=== PATIENT | male | born 1950 | race Caucasian/White ===

== ENCOUNTER 2017-03-11 10:08 | Emergency (ER) | payer OTHER, MEDICARE ==
[~2017-03-11 10:08] MED LIST: ADULT TUSS100 MG/51 PO; AMLODIPINE BESY10 M1 PO; ARTIFICIAL TEAR15 M8 OP; BENADRYL25 M3 PO; DIALYSIS; EYLEA2 MG/0.01 IO; FOLIC ACID1 M1 PO; FUROSEMIDE20 M1 PO; GLIPIZIDE10 M2 PO; GLUCAGON EMERGEN1 MG IM; GUAIFENESIN400 M1 PO; HUMALOG KW200 UNIT/1 SC; HYDRALAZINE HC100 M1 PO; IPRAT-ALBUT 0.5-3 ML INH; LANTUS SOL100 UNIT/1 SC; LEVAQUIN500 M1 PO; LEVOFLOXACIN500 M1 PO; LOPERAMIDE2 M2 PO; LOPRESSOR100 M1 PO; LUCENTIS0.3 MG/0.1 IO; MUCUS RELIEF400 M1 PO; NICORETTE BC; NICOTINE PATCH1 EAC1 TD; NORCO 5-325 TA1 EACH PO; NORVASC10 M2 PO; PLAVIX75 M1 PO; PRAVACHOL20 M1 PO; PREDNISONE10 M1; PREDNISONE10 M1 PO; PROVENTIL HFA6.7 G1 PO; RENVELA800 M1 PO; RIBAVIRIN200 M1 PO; SODIUM BICARBO650 M1 PO; SODIUM POL15 GM/601 PO; SYMBICORT 80-41 PUFF INH; TYLENOL325 M2 PO; VIEKIRA PAK1 EACH PO; VITAMIN B-12100 MC1 PO; VITAMIN B-625 M1 PO; XANAX0.25 M1 PO; XANAX0.5 M1 PO; ZESTRIL40 M2 PO; ZOLPIDEM TARTRAT5 M2 PO
[2017-03-11] MEDS ORDERED: MUPIROCIN22 G2 TP (10:47)
[2017-03-11] MEDS ORDERED: OXYCODONE HCL5 M1 PO (10:47)
[2017-03-11] MEDS ORDERED: RENVELA800 M1 PO (10:48)
[2017-03-11] MEDS ORDERED: EPOGEN2000 UNIT/ IV (11:18)
[2017-03-11] MEDS ORDERED: HECTOROL IV (11:18)
[2017-03-11] MEDS ORDERED: VENOFER100 MG/52 IV (11:19)
[2017-03-11 11:26] LABS: ABG CO2 ARTERIAL 24 mmol/L (21-27); ARTERIAL BLD GAS O2 SATURATION 94 % (95-98); ARTERIAL BLOOD GAS PCO2 42 mmHg (32-45); ARTERIAL PO2 73 mmHg (70-100); BICARBONATE 23 mmol/L (21-28); BLOOD GAS BASE EXCESS -2 mM/L (-/+3); PH 7.36 Units (7.35-7.45)
[2017-03-11 12:11] LABS: BASO % 0.5 % (0-2); EOS % 2.9 % (0-7); EOSINOPHIL ABSOLUTE COUNT 0.3 tho/cmm (0.0-0.7); HCT-HEMATOCRIT 30.8 % (36.0-53.5); HGB-HEMOGLOBIN 9.7 gm/dl (13.5-17.0); IMMATURE GRANULOCYTES ABSOLUTE 0.02 tho/cmm (0-0.03); IMMATURE GRANULOCYTES PERCENT 0.2 % (0-0.3); LYMPH % 17.4 % (20-45); LYMPH ABSOLUTE COUNT 1.5 tho/cmm (0.8-4.5); MCH (MEAN CORPUSCULAR HGB) 28.7 pg (28.0-32.0); MCHC MEAN CORPUSCULAR HGB CONC 31.5 % (32.0-36.0); MCV (MEAN CELL VOLUME) 91.1 fl (82.0-96.0); MEAN PLATELET VOLUME 9.1 cmc (9.4-12.4); MONOCYTE ABSOLUTE COUNT 0.8 tho/cmm (0.0-1.2); PLATELET COUNT 228 tho/cmm (150-450); RED BLOOD COUNT 3.38 mil/cmm (4.40-5.70); RED CELL DISTRIBUTION WIDTH 13.9 % (12.4-16.4); WHITE BLOOD COUNT 8.5 tho/cmm (4.0-10.0)
[2017-03-11 12:25] LABS: ANION GAP 16 mmol/L (0-20); BLOOD UREA NITROGEN 48 mg/dl (6-24); CALCIUM 9.2 mg/dl (8.5-10.5); CARBON DIOXIDE-VENOUS 26 mmol/L (22-32); CHLORIDE 105 mmol/l (96-110); CREATININE 7.18 mg/dl (0.60-1.30); GLUCOSE 109 mg/dL (70-110); POTASSIUM 5.3 mmol/L (3.7-5.1); SODIUM 142 mmol/L (135-145); eGFR VALUE FOR BLACK 8 mL/Min
[2017-03-11] MEDS ORDERED: PREDNISONE50 M1 PO (13:30)
[2017-04-29] MEDS ORDERED: VENOFER50 MG/2.5 IV (10:18)
[2017-05-02] MEDS ORDERED: LEVAQUIN500 M1 PO (09:48)
[2017-06-10] MEDS ORDERED: DELTASONE20 MG PO (09:22)
[2017-06-10] MEDS ORDERED: LEVAQUIN500 M1 PO (09:22)
[2017-06-13] MEDS ORDERED: PREDNISONE10 M1 PO (14:35)
[2017-06-13] MEDS ORDERED: LEVAQUIN500 M1 PO (14:38)
== END 2017-03-11 13:40 ==
LOC: EDMED 10:08
PROVIDERS: Emergency Medicine
DX: J44.9 Chronic obstructive pulmonary disease, unspecified (principal); E11.22 Type 2 diabetes mellitus with diabetic chronic kidney disease; I12.0 Hypertensive chronic kidney disease with stage 5 chronic kidney disease or end stage renal disease; N18.6 End stage renal disease; F17.200 Nicotine dependence, unspecified, uncomplicated; Z79.51 Long term (current) use of inhaled steroids; Z79.899 Other long term (current) drug therapy
CPT/HCPCS: J2930

== ENCOUNTER 2017-03-12 21:07 | Inpatient (IN) | payer OTHER, MEDICARE ==
[~2017-03-12 21:07] MED LIST changes: +EPOGEN2000 UNIT/ IV; +HECTOROL IV; +MUPIROCIN22 G2 TP; +OXYCODONE HCL5 M1 PO; +PREDNISONE50 M1 PO; +VENOFER100 MG/52 IV
[2017-03-12 21:44] LABS: BASO % 0.1 % (0-2); HCT-HEMATOCRIT 31.7 % (36.0-53.5); HGB-HEMOGLOBIN 10.3 gm/dl (13.5-17.0); IMMATURE GRANULOCYTES ABSOLUTE 0.09 tho/cmm (0-0.03); IMMATURE GRANULOCYTES PERCENT 0.7 % (0-0.3); LYMPH % 15.6 % (20-45); LYMPH ABSOLUTE COUNT 2.2 tho/cmm (0.8-4.5); MCH (MEAN CORPUSCULAR HGB) 29.3 pg (28.0-32.0); MCHC MEAN CORPUSCULAR HGB CONC 32.5 % (32.0-36.0); MCV (MEAN CELL VOLUME) 90.3 fl (82.0-96.0); MEAN PLATELET VOLUME 9.7 cmc (9.4-12.4); MONO % 5.4 % (0-12); MONOCYTE ABSOLUTE COUNT 0.7 tho/cmm (0.0-1.2); NEUTROPHIL ABSOLUTE COUNT 10.8 tho/cmm (1.6-8.0); NEUTROPHIL-AUTOMATED 10.8 tho/cmm (1.6-8.0); NEUTROPHILS % 78.2 % (40-80); RED BLOOD COUNT 3.51 mil/cmm (4.40-5.70); RED CELL DISTRIBUTION WIDTH 14.2 % (12.4-16.4)
[2017-03-12 21:46] LABS: ABG CO2 ARTERIAL 22 mmol/L (21-27); ARTERIAL BLD GAS O2 SATURATION 100 % (95-98); ARTERIAL BLOOD GAS PCO2 43 mmHg (32-45); ARTERIAL PO2 429 mmHg (70-100); BICARBONATE 20 mmol/L (21-28); BLOOD GAS BASE EXCESS -5 mM/L (-/+3)
[2017-03-12 22:00] LABS: ANION GAP 22 mmol/L (0-20); CALCIUM 8.9 mg/dl (8.5-10.5); CARBON DIOXIDE-VENOUS 21 mmol/L (22-32); CHLORIDE 101 mmol/l (96-110); CREATININE 8.01 mg/dl (0.60-1.30); MAGNESIUM 2.2 mg/dl (1.8-2.6); PHOSPHOROUS 6.8 mg/dl (2.5-4.9); POTASSIUM 5.8 mmol/L (3.7-5.1); SODIUM 138 mmol/L (135-145); eGFR VALUE FOR BLACK 7 mL/Min
[2017-03-12 22:02] LABS: PLATELET COUNT 368 tho/cmm (150-450); WHITE BLOOD COUNT 13.8 tho/cmm (4.0-10.0)
[2017-03-12 22:03] LABS: BLOOD UREA NITROGEN 73 mg/dl (6-24); GLUCOSE 441 mg/dL (70-110)
[2017-03-13 03:54] LABS: BASO % 0.1 % (0-2); EOS % 0.1 % (0-7); HCT-HEMATOCRIT 29.2 % (36.0-53.5); HGB-HEMOGLOBIN 9.6 gm/dl (13.5-17.0); IMMATURE GRANULOCYTES ABSOLUTE 0.14 tho/cmm (0-0.03); IMMATURE GRANULOCYTES PERCENT 1.2 % (0-0.3); LYMPH % 9.2 % (20-45); LYMPH ABSOLUTE COUNT 1.1 tho/cmm (0.8-4.5); MCH (MEAN CORPUSCULAR HGB) 29.3 pg (28.0-32.0); MCHC MEAN CORPUSCULAR HGB CONC 32.9 % (32.0-36.0); MEAN PLATELET VOLUME 9.2 cmc (9.4-12.4); MONO % 9.8 % (0-12); MONOCYTE ABSOLUTE COUNT 1.1 tho/cmm (0.0-1.2); NEUTROPHIL ABSOLUTE COUNT 9.3 tho/cmm (1.6-8.0); NEUTROPHIL-AUTOMATED 9.3 tho/cmm (1.6-8.0); NEUTROPHILS % 79.6 % (40-80); PLATELET COUNT 263 tho/cmm (150-450); RED BLOOD COUNT 3.28 mil/cmm (4.40-5.70); RED CELL DISTRIBUTION WIDTH 13.9 % (12.4-16.4); WHITE BLOOD COUNT 11.7 tho/cmm (4.0-10.0)
[2017-03-13 04:02] LABS: CALCIUM 8.4 mg/dl (8.5-10.5); CARBON DIOXIDE-VENOUS 27 mmol/L (22-32); CHLORIDE 100 mmol/l (96-110); SODIUM 136 mmol/L (135-145); eGFR VALUE FOR BLACK 17 mL/Min
[2017-03-13 04:11] LABS: ANION GAP 13 mmol/L (0-20); BLOOD UREA NITROGEN 30 mg/dl (6-24); CREATININE 4.01 mg/dl (0.60-1.30); GLUCOSE 175 mg/dL (70-110); POTASSIUM 3.7 mmol/L (3.7-5.1)
[2017-03-13] MEDS ORDERED: PREDNISONE50 M1 PO (11:29)
[2017-03-14 06:06] LABS: ANION GAP 13 mmol/L (0-20); BLOOD UREA NITROGEN 37 mg/dl (6-24); CALCIUM 8.3 mg/dl (8.5-10.5); CARBON DIOXIDE-VENOUS 27 mmol/L (22-32); CHLORIDE 98 mmol/l (96-110); CREATININE 3.62 mg/dl (0.60-1.30); GLUCOSE 245 mg/dL (70-110); LIPASE 458 U/L (73-393); POTASSIUM 4.4 mmol/L (3.7-5.1); SODIUM 134 mmol/L (135-145); eGFR VALUE FOR BLACK 19 mL/Min
[2017-03-14 06:07] LABS: CREATINE PHOSPHOKINASE (CPK) 61 U/L (35-232)
[2017-03-14 06:21] LABS: CKMB 1.5 ng/ml (<3.6)
[2017-03-15 03:34] LABS: BASO % 0.1 % (0-2); EOS % 0.1 % (0-7); HCT-HEMATOCRIT 26.4 % (36.0-53.5); HGB-HEMOGLOBIN 8.6 gm/dl (13.5-17.0); IMMATURE GRANULOCYTES ABSOLUTE 0.12 tho/cmm (0-0.03); IMMATURE GRANULOCYTES PERCENT 1.4 % (0-0.3); LYMPH % 18.9 % (20-45); LYMPH ABSOLUTE COUNT 1.7 tho/cmm (0.8-4.5); MCH (MEAN CORPUSCULAR HGB) 29.2 pg (28.0-32.0); MCHC MEAN CORPUSCULAR HGB CONC 32.6 % (32.0-36.0); MCV (MEAN CELL VOLUME) 89.5 fl (82.0-96.0); MEAN PLATELET VOLUME 9.3 cmc (9.4-12.4); MONO % 11.4 % (0-12); NEUTROPHILS % 68.1 % (40-80); PLATELET COUNT 217 tho/cmm (150-450); RED BLOOD COUNT 2.95 mil/cmm (4.40-5.70); RED CELL DISTRIBUTION WIDTH 13.9 % (12.4-16.4); WHITE BLOOD COUNT 8.8 tho/cmm (4.0-10.0)
[2017-03-15 04:05] LABS: ALBUMIN 3.1 g/dl (3.5-5.0); ANION GAP 16 mmol/L (0-20); BLOOD UREA NITROGEN 75 mg/dl (6-24); CALCIUM 7.7 mg/dl (8.5-10.5); CARBON DIOXIDE-VENOUS 23 mmol/L (22-32); CHLORIDE 99 mmol/l (96-110); CREATININE 5.46 mg/dl (0.60-1.30); GLUCOSE 218 mg/dL (70-110); MAGNESIUM 1.7 mg/dl (1.8-2.6); PHOSPHOROUS 3.6 mg/dl (2.5-4.9); POTASSIUM 4.1 mmol/L (3.7-5.1); SODIUM 134 mmol/L (135-145); eGFR VALUE FOR BLACK 12 mL/Min
[2017-03-16 05:51] LABS: ANION GAP 14 mmol/L (0-20); BLOOD UREA NITROGEN 43 mg/dl (6-24); CALCIUM 7.5 mg/dl (8.5-10.5); CARBON DIOXIDE-VENOUS 26 mmol/L (22-32); CHLORIDE 101 mmol/l (96-110); MAGNESIUM 1.5 mg/dl (1.8-2.6); PHOSPHOROUS 3.3 mg/dl (2.5-4.9); SODIUM 137 mmol/L (135-145); eGFR VALUE FOR BLACK 19 mL/Min
[2017-03-16 05:52] LABS: CREATININE 3.63 mg/dl (0.60-1.30); GLUCOSE 106 mg/dL (70-110)
[2017-03-16] MEDS ORDERED: ISOSORBIDE MONO30 M4 PO (12:40)
[2017-03-16] MEDS ORDERED: ASPIRIN EC81 MG PO (12:42)
[2017-04-29] MEDS ORDERED: VENOFER50 MG/2.5 IV (10:18)
[2017-05-02] MEDS ORDERED: LEVAQUIN500 M1 PO (09:48)
[2017-06-10] MEDS ORDERED: LEVAQUIN500 M1 PO (09:22)
[2017-06-10] MEDS ORDERED: DELTASONE20 MG PO (09:22)
[2017-06-13] MEDS ORDERED: PREDNISONE10 M1 PO (14:35)
[2017-06-13] MEDS ORDERED: LEVAQUIN500 M1 PO (14:38)
== END 2017-03-16 15:00 | DRG 640 ==
LOC: EDMED 21:07 → EMR2 22:21 → PCUA 23:15
PROVIDERS: Emergency Medicine; Family Medicine; Internal Medicine Nephrology; Nurse Practitioner Acute Care; ADMIT Hospitalist
PROC: 5A1D60Z (ICD-10-PCS; principal; 2017-03-12)
PROC: 5A09357 Assistance with Respiratory Ventilation, Less than 24 Consecutive Hours, Continuous Positive Airway Pressure (ICD-10-PCS; 2017-03-12)
PROC: 02HV33Z Insertion of Infusion Device into Superior Vena Cava, Percutaneous Approach (ICD-10-PCS; 2017-03-14)
PROC: 4A023N7 Measurement of Cardiac Sampling and Pressure, Left Heart, Percutaneous Approach (ICD-10-PCS; 2017-03-14)
PROC: B2111ZZ Fluoroscopy of Multiple Coronary Arteries using Low Osmolar Contrast (ICD-10-PCS; 2017-03-14)
DX: E87.70 Fluid overload, unspecified (principal); J81.0 Acute pulmonary edema; J96.21 Acute and chronic respiratory failure with hypoxia; I95.9 Hypotension, unspecified; N18.6 End stage renal disease; E87.2 Acidosis; I12.0 Hypertensive chronic kidney disease with stage 5 chronic kidney disease or end stage renal disease; E11.22 Type 2 diabetes mellitus with diabetic chronic kidney disease; J44.1 Chronic obstructive pulmonary disease with (acute) exacerbation; Z99.2 Dependence on renal dialysis; H35.30 Unspecified macular degeneration; E78.5 Hyperlipidemia, unspecified; Z79.02 Long term (current) use of antithrombotics/antiplatelets; Z99.81 Dependence on supplemental oxygen; E87.5 Hyperkalemia; Z86.19 Personal history of other infectious and parasitic diseases; E83.39 Other disorders of phosphorus metabolism; D63.1 Anemia in chronic kidney disease; R07.9 Chest pain, unspecified; R79.89 Other specified abnormal findings of blood chemistry; Z87.891 Personal history of nicotine dependence; Z86.73 Personal history of transient ischemic attack (TIA), and cerebral infarction without residual deficits; Z91.15 Patient's noncompliance with renal dialysis; E11.65 Type 2 diabetes mellitus with hyperglycemia; T38.0X5A Adverse effect of glucocorticoids and synthetic analogues, initial encounter; I25.10 Atherosclerotic heart disease of native coronary artery without angina pectoris; E83.42 Hypomagnesemia
CPT/HCPCS: C1751; C1887; C1894; C8929; J0885; J1644; J1650; J1815; J1956; J2060; J2250; J2270; J2920; J2930; J3010; J3475; J7512; P9047; Q9967